=== PATIENT | male | born 1995 | race Caucasian/White ===

== ENCOUNTER → 2017-09-19 | Outpatient (CLI) | payer BC ==
[~2017-09-19] MED LIST: CELEXA20 MG PO; HYOSCYAMINE0.125 MG PO; MOTRIN600 MG PO; TYLENOL W/CODEI1 TA2 PO
[2017-09-19 11:11] LABS: BASO # 0.1 10*3/uL (0.0-0.1); BASO % 0.8 % (0.0-1.0); EOS # 0.2 10*3/uL (0.0-0.4); EOS % 2.7 % (1.0-4.0); HEMATOCRIT 46.5 % (42.0-52.0); LYMPH # 2.7 10*3/uL (1.3-4.4); LYMPH % 30.5 % (27.0-41.0); MEAN CELL VOLUME 91.5 fl (80.0-94.0); MEAN CORPUSCULAR HGB 31.5 pg (27.0-31.0); MEAN CORPUSCULAR HGB CONC 34.4 g/dl (33.0-37.0); MEAN PLATELET VOLUME 10.6 fl (9.6-12.3); MONO # 0.8 10*3/uL (0.1-1.0); MONO % 9.4 % (3.0-9.0); NEUT % 56.3 % (47.0-73.0); PLATELET COUNT AUTOMATED 268 10*3/uL (130-400); RED BLOOD COUNT 5.08 10*6/uL (4.50-5.90); RED CELL DISTRI WIDTH 11.7 % (0-14.5); WHITE BLOOD COUNT 8.8 10*3/uL (4.8-10.8)
[2017-09-19 11:12] LABS: BILIRUBIN NEGATIVE (NEGATIVE); BLOOD NEGATIVE (NEGATIVE); CLARITY CLEAR (CLEAR); COLOR YELLOW (YELLOW); GLUCOSE NEGATIVE (NEGATIVE); KETONE NEGATIVE (NEGATIVE); LEUKO ESTERASE NEGATIVE (NEGATIVE); NITRITE NEGATIVE (NEGATIVE); SPECIFIC GRAVITY 1.025 (1.005-1.030); UROBILINOGEN 0.2 E.U./dl (0.2-1.0)
[2017-09-19 11:24] LABS: BACTERIA TRACE; EPITHELIAL CELLS 0-2; WBC 21-30 wbc/hpf (0-5)
[2017-09-19 11:34] LABS: ALBUMIN 4.2 gm/dl (3.1-4.5); ALKALINE PHOSPHATASE 93 U/L (45-117); BILIRUBIN, DIRECT < 0.1 mg/dL (0.0-0.2); BUN 13 mg/dl (7-24); CHLORIDE 105 mmol/L (98-107); CHOLESTEROL 211 mg/dL (<200); CREATININE 1.07 mg/dL (0.70-1.30); HDL CHOLESTEROL 35 mg/dl (40-60); LDL CHOLESTEROL 151 mg/dL (9-159); POTASSIUM 4.1 mmol/L (3.5-5.1); SGOT/AST 15 IU/L (3-35); SGPT/ALT 54 U/L (12-78); SODIUM 140 mmol/L (136-145); TRIGLYCERIDES 123 mg/dl (<150); VLDL CHOLESTEROL 25 mg/dL (6-40)
== END | disposition home or self-care (01) ==
LOC: LAB 10:44
DX: Z13.1 Encounter for screening for diabetes mellitus (principal); E55.9 Vitamin D deficiency, unspecified; E03.9 Hypothyroidism, unspecified; E78.5 Hyperlipidemia, unspecified; R10.32 Left lower quadrant pain; Z90.49 Acquired absence of other specified parts of digestive tract

== ENCOUNTER 2017-09-25 13:45 | Emergency (ER) | payer BC ==
[~2017-09-25] VITALS: Ht 170.1 cm; Wt 97.5 kg
[~2017-09-25 13:45] MED LIST changes: -CELEXA20 MG PO; -HYOSCYAMINE0.125 MG PO
[2017-09-25] MEDS ORDERED: CELEXA20 MG PO (13:47)
[2017-09-25] MEDS ORDERED: HYOSCYAMINE0.125 MG PO (13:48)
== END 2017-09-25 14:57 | disposition home or self-care (01) ==
LOC: ED 13:45
DX: S05.02XA Injury of conjunctiva and corneal abrasion without foreign body, left eye, initial encounter (principal); Z79.899 Other long term (current) drug therapy; Z88.0 Allergy status to penicillin; X58.XXXA Exposure to other specified factors, initial encounter; Y93.89 Activity, other specified; Y92.89 Other specified places as the place of occurrence of the external cause; Y99.9 Unspecified external cause status

== ENCOUNTER 2021-04-10 19:48 | Emergency (ER) | payer BC ==
[~2021-04-10 19:48] MED LIST changes: +CELEXA20 MG PO; +HYOSCYAMINE0.125 MG PO
[2021-04-10] MEDS ORDERED: KLONOPIN0.5 MG PO (20:04)
== END 2021-04-10 21:00 | disposition home or self-care (01) ==
LOC: ED 19:48
DX: U07.1 COVID-19 (principal); Z88.0 Allergy status to penicillin

== ENCOUNTER 2023-10-26 20:18 | Emergency (ER) | payer SELFPAY ==
[~2023-10-26] VITALS: Ht 167.6 cm; Wt 106.1 kg
[~2023-10-26 20:18] MED LIST changes: +KLONOPIN0.5 MG PO
[2023-10-26] MEDS ORDERED: Ketorolac Tromethamine 60 MG/2 ML VIAL IM ONE (21:25)
[2023-10-26] MEDS ORDERED: NAPROSYN500 MG PO (21:25)
== END 2023-10-26 21:34 | disposition home or self-care (01) ==
LOC: ED 20:18
DX: S93.402A Sprain of unspecified ligament of left ankle, initial encounter (principal); Z88.0 Allergy status to penicillin; W18.42XA Slipping, tripping and stumbling without falling due to stepping into hole or opening, initial encounter; Y93.89 Activity, other specified; Y92.89 Other specified places as the place of occurrence of the external cause; Y99.8 Other external cause status

== ENCOUNTER 2024-03-05 12:41 | Emergency (ER) | payer OTHER ==
[~2024-03-05] VITALS: Ht 170.1 cm; Wt 104.8 kg
[~2024-03-05 12:41] MED LIST changes: +NAPROSYN500 MG PO
[2024-03-05 13:58] LABS: HEMATOCRIT 52.9 % (42.0-52.0); MEAN CELL VOLUME 91.2 fl (80.0-94.0); MEAN CORPUSCULAR HGB 31.4 pg (27.0-31.0); MEAN CORPUSCULAR HGB CONC 34.4 g/dl (33.0-37.0); MEAN PLATELET VOLUME 10.3 fl (9.6-12.3); PLATELET COUNT AUTOMATED 315 10*3/uL (130-400); RED CELL DISTRI WIDTH 12.3 % (0-14.5); WHITE BLOOD COUNT 18.6 10*3/uL (4.8-10.8)
[2024-03-05 13:59] LABS: MANUAL DIFF REFLEX YES
[2024-03-05 14:19] LABS: ALKALINE PHOSPHATASE 105 U/L (46-116); BUN 20 mg/dl (9-23); CHLORIDE 98 mmol/L (98-107); LIPASE 30 U/L (12-53); POTASSIUM 4.6 mmol/L (3.4-5.1); SGPT/ALT 62 U/L (5-49); TOTAL PROTEIN 8.7 gm/dL (6.0-8.0)
[2024-03-05] MEDS ORDERED: Ondansetron Hydrochloride 4 MG TAB SL ONE (14:20)
[2024-03-05] MEDS ORDERED: ACETAMINOPHEN 325 MG TAB PO ONE (14:20)
[2024-03-05 14:33] LABS: PLATELET SUFFICIENCY NORMAL (NORMAL); POLYCHROMASIA SLIGHT; TOTAL CELLS COUNTED 100 #CELLS
[2024-03-05] MEDS ORDERED: Ondansetron4 MG PO (15:40)
== END 2024-03-05 15:48 | disposition home or self-care (01) ==
LOC: ED 12:41
PROVIDERS: Internal Medicine
DX: A08.4 Viral intestinal infection, unspecified (principal); Z20.822 Contact with and (suspected) exposure to COVID-19; Z88.0 Allergy status to penicillin; Z98.890 Other specified postprocedural states

== ENCOUNTER 2025-03-07 08:04 | Emergency (ER) | payer MEDICAID ==
[~2025-03-07] VITALS: Wt 110.2 kg
[~2025-03-07 08:04] MED LIST changes: +Ondansetron4 MG PO
[2025-03-07] MEDS ORDERED: VENT7GM INH (10:21)
[2025-03-07] MEDS ORDERED: PREDNISONE20 M1 PO (10:21)
[2025-03-07] MEDS ORDERED: GUAIFENESIN AC473 M1 PO (10:21)
== END 2025-03-07 10:24 | disposition home or self-care (01) ==
LOC: ED 08:04
DX: J20.5 Acute bronchitis due to respiratory syncytial virus (principal); Z88.0 Allergy status to penicillin; Z20.822 Contact with and (suspected) exposure to COVID-19